=== PATIENT | female | born 1975 | race Caucasian/White ===

== ENCOUNTER 2020-10-28 14:17 | Emergency (ER) | payer OTHER ==
[~2020-10-28] VITALS: Ht 160 cm; Wt 56.7 kg
[2020-10-28] MEDS ORDERED: TESSALON PERLE100 M1 PO (14:30)
[2020-10-28] MEDS ORDERED: ZOFRAN ODT4 MG DISSOLVE (14:30)
[2020-10-28] MEDS ORDERED: IPRAT-ALBUT 0.5-3 ML INH (14:30)
[2020-10-28] MEDS ORDERED: VENTOLIN HFA 1818 GM INH (15:58)
[2020-10-28] MEDS ORDERED: ZPAK PO (15:58)
[2020-10-28] MEDS ORDERED: XANAX 0.5 MG0.5 MG PO (15:58)
[2020-10-28] MEDS ORDERED: DEXAMETHASONE 44 M1 PO (15:58)
[2020-10-28 16:07] VITALS: BP 118/77
== END 2020-10-28 16:08 | disposition home or self-care (01) ==
LOC: M.ERS 14:17
DX: U07.1 COVID-19 (principal); F41.0 Panic disorder [episodic paroxysmal anxiety]; J45.909 Unspecified asthma, uncomplicated; Z90.711 Acquired absence of uterus with remaining cervical stump; Z85.41 Personal history of malignant neoplasm of cervix uteri; Z79.899 Other long term (current) drug therapy